=== PATIENT | male | born 1950 | race Caucasian/White ===

== ENCOUNTER 2018-09-26 21:02 | Emergency (ER) | payer MEDICARE, OTHER ==
[2018-09-26] MEDS ORDERED: Albuterol/Ipratropium 3.0-0.5 MG/3 ML Neb Soln NEB ONE (21:40)
--- NOTE | 2018-09-26 22:40 | CR ---
INDICATION: Cough COMPARISON: None available. FINDINGS: PA and lateral views of the chest were obtained. The lungs are clear. No focal or diffuse infiltrates are present. The heart is normal in size. The mediastinum is normal in appearance. The osseous structures are normal in appearance for the patient`s age. IMPRESSION: Normal chest 2 views. Dictated by Bakari Galindo MD @ Sep 26 2018 10:37PM Signed by Dr. Bakari Galindo @ Sep 26 2018 10:37PM
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
== END 2018-09-26 22:36 | disposition home or self-care (01) ==
LOC: MW.ED 21:02
DX: J06.9 Acute upper respiratory infection, unspecified (principal); E78.00 Pure hypercholesterolemia, unspecified; Z79.899 Other long term (current) drug therapy
CPT/HCPCS: 71046; 71046-26; 87804; 99284-25; J7620-GY

== ENCOUNTER 2019-04-25 06:43 | Emergency (ER) | payer MEDICARE, OTHER ==
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
--- NOTE | 2019-04-25 07:50 | CR ---
Indication: Injury and pain Technique: Pelvis 2 views Comparison: None Findings: Bones: Alignment is normal. No fractures or bone lesions. Joint spaces: Severe bilateral hip joint osteoarthritis. Soft tissues: Unremarkable. Impression: No sign of acute injury. Dictated by Adiel Ibrahim MD @ Apr 25 2019 7:47AM Signed by Dr. Adiel Ibrahim @ Apr 25 2019 7:48AM
--- NOTE | 2019-04-25 07:52 | CR ---
Indication: Injury and pain Technique: Nasal bone 4 views Comparison: None Findings: Bones: Alignment is normal. No fractures or bone lesions. Joint spaces: Unremarkable. Soft tissues: Unremarkable. Impression: No sign of acute injury. Dictated by Adiel Ibrahim MD @ Apr 25 2019 7:48AM Signed by Dr. Adiel Ibrahim @ Apr 25 2019 7:50AM
[2019-04-25] MEDS ORDERED: Ketorolac 10 MG Tab PO ONE (07:57)
== END 2019-04-26 08:36 | disposition home or self-care (01) ==
LOC: MW.ED 06:43
DX: S00.81XA Abrasion of other part of head, initial encounter (principal); V49.49XA Driver injured in collision with other motor vehicles in traffic accident, initial encounter; Y92.410 Unspecified street and highway as the place of occurrence of the external cause
CPT/HCPCS: 70160; 72170; 99284; A9270